=== PATIENT | female | born 1965 | race Caucasian/White ===

== ENCOUNTER 2023-06-09 13:02 | Outpatient (CLI) | payer OTHER, SELFPAY ==
--- NOTE | ~2023-06-09 | MMUS_ITS ---
EXAMINATION: MM diagnostic michele BI w dashawn, US breast RT limited HISTORY: Palpable right breast lump TECHNIQUE: Additional 3-D tomosynthesis images of the breasts were performed and synthetic 2-D images were generated. CAD analysis was submitted and interpreted. High resolution Limited right breast ult rasound was performed. COMPARISON: Comparison to multiple prior studies sequentially, with oldest reviewed study dated 11/04. BREAST PARENCHYMAL COMPOSITION: Not dense: There are scattered areas of fibroglandular density. FINDINGS: MAMMOGRAPHIC FINDINGS: Near the area of palpable concern in the upper outer quadrant of the right breast there is a cluster of calcifications with ill-defined associated density. No discrete mass. No architectural distortion. No evidence for malignancy in the left breast. ULTRASOUND: Limited right breast ultrasound: At 12:00, 11 cm from the nipple, there is a complex mixed echogenici ty mass measuring approximately 1.2 x 1 x 0.8 cm with areas of posterior shadowing, possibly due to c alcifications. IMPRESSION: 1. Complex right breast mass at 12:00, 11 cm from the nipple measuring 1.2 cm greatest dimension. 2. Ultrasound-guided right breast biopsy recommended. BI-RADS category 4, suspicious findings. Reviewed, dictated and finalized at location A. RT/EXPORT FREIGHT FORWARDER IMPRESSION: 1. Complex right breast mass at 12:00, 11 cm from the nipple measuring 1.2 cm g reatest dimension. 2. Ultrasound-guided right breast biopsy recommended. BI-RADS category 4, suspicious findings.
== END 2023-06-09 13:03 | disposition home or self-care (01) ==
PROVIDERS: PCP Family Medicine; Visit Provider Student in an Organized Health Care Education/Training Program
DX: R92.8 Other abnormal and inconclusive findings on diagnostic imaging of breast (principal); N60.01 Solitary cyst of right breast
CPT/HCPCS: 76642; 77062; 77066; G0279

== ENCOUNTER 2024-04-29 09:11 | Emergency (ER) | payer OTHER, SELFPAY ==
--- NOTE | ~2024-04-29 | XR_ITS ---
CHEST RADIOGRAPH, PA AND LATERAL CLINICAL HISTORY: cough, chest heaviness, bodyaches, fever . COMPARISON: None available TECHNIQUE: PA and lateral views of the chest. FINDINGS The cardiomediastinal silhouette is unremarkable. The lungs are clear. Plate and screw fixation within the right clavicle. IMPRESSION: No focal infiltrate or effusion. Reviewed, dictated and finalized at location A. PEN SET ASSEMBLER
--- NOTE | 2024-04-29 09:18 | ED.URI ---
HPI - URI/Sore Throat General Chief Complaint: Upper Respiratory Infection Stated Complaint: Weakness/Vomiting/Bodyaches Time Seen by Provider: 04/29/24 09:14 Source: patient Mode of arrival: ambulatory Limitations: no limitations History of Present Illness HPI Narrative: Jannet is a 58-year-old female patient presenting to the clinic today with complaints fevers, chills, body aches, nausea, vomiting, cough, sore throat, weakness, and general malaise/fatigue times 4 days. Highest fever was 102? F. her also has similar symptoms. Took at home COVID influenza test on and they were negative. MD elicited complaint: fever, cough, sore throat and nasal congestion Related Data Home Medications ?Medication ?Instructions ?Recorded ?Confirmed ?Last Taken ?Type semaglutide (weight loss) 0.25 0.25 mg subcut WEEKLY 05/25/23 02/27/24 Unknown History mg/0.5 mL subcutaneous pen injector Allergies Allergy/AdvReac Type Severity Reaction Status Date / Time cephalexin (From Keflex) Allergy Mild Hives Verified 04/29/24 09:25 codeine Allergy Unknown HIVES/RED Verified 04/29/24 09:25 FACE Review of Systems Review of Systems: Pertinent positives per HPI. Patient denies any rash, headache, visual changes, dizziness, chest pain, palpitations, nausea, vomiting, diarrhea, constipation, abdominal pain, or any urinary issues. [facility] Past Medical History Medical History Breast lump Presence of pessary Hypertension affecting Surgical History Surgical History History of hysteroscopy ablation Hx of appendectomy History of bilateral breast reduction surgery 1984 History of section 1997, 2002 Social History Social History Smoking status: Never smoker Alcohol intake: current Substance use: never Do You Feel Safe in your Home?: Yes Lack of Transportation: No Lack of Food: Never True Current Housing: I Have Housing Concerned About Future Housing: No Difficulty Paying Gas/Electric Bills: No Difficulty Paying for Meds: No Currently Unemployed: No Education: Master's Degree or Higher Difficulty w/ Childcare or Family Care: No Living arrangements: with family Occupation/Education: occupation Comments At the time of my signature, I reviewed and agree with the nursing past medical, surgical, social, and family history. There is no relevant family history pertinent to the patient complaint. Exam Narrative: General: Well-developed, well nourished, in no apparent distress Head: Normocephalic, atraumatic Eyes: Pupils equally round and reactive to light bilaterally, EOM intact, sclera and conjunctive clear, no discharge, lids normal Ears: TMs intact and congested, ear canals clear, no drainage, grossly hearing normal. Nose: Nares patent, clear nasal discharge, no inflammation, no sinus tenderness. Mouth: Oral pharynx without lesions or masses, good dentition, MMM. Neck: Supple, trachea midline, no enlargement of anterior or posterior cervical nodes, no thyroid masses or goiter palpable. Cardio: Regular rate and rhythm, s1 and s2 normal, no murmur appreciated. Resp: Clear to auscultation bilaterally, no rhonchi, rales, wheezing or rubs Course Course Emergency Course: Portions of this record may have been created with voice recognition software. Level of Care: Express Care Visit Vital Signs Vital signs: Vital Signs Temperature 36.8 C 04/29/24 09:28 Pulse Rate 85 04/29/24 09:28 Respiratory Rate 16 04/29/24 09:28 Blood Pressure 107/79 04/29/24 09:28 Pulse Oximetry 99 04/29/24 09:28 Oxygen Delivery Room Air 04/29/24 09:28 Temperature 36.8 C 04/29/24 09:28 Pulse Rate 85 04/29/24 09:28 Respiratory Rate 16 04/29/24 09:28 Blood Pressure 107/79 04/29/24 09:28 Pulse Oximetry 99 04/29/24 09:28 Oxygen Delivery Room Air 04/29/24 09:28 Vital signs reviewed MDM - URI/Sore Throat MDM Narrative Medical decision making narrative: At the time of visit patient is resting comfortably on the exam table. Patient appears to be nontoxic. Labs: Strep test was performed was negative in the clinic today. We will send strep for culture. Diagnostics: Chest x-ray is negative for any acute cardiopulmonary process. Plan: I suspect patient has URI with cough and congestion/viral syndrome. Supportive measures were discussed with the patient and they voiced understanding discharge instructions and agrees to treatment plan. Return precautions reviewed Differential Diagnosis Differential diagnosis: Likely upper respiratory infection, otitis media, sinusitis, viral infection, bronchitis, influenza, pharyngitis and other (COVID) Lab Data Labs: Lab Results 04/29/24 Range/Units 09:38 POC Grp A Strep Screen Negative (Negative) Discharge Plan Discharge Clinical Impression: Upper respiratory infection with cough and congestion, Acute viral syndrome Patient Disposition: Home, Self-Care Condition: Stable Instructions: Antibiotic Form, Upper Respiratory Infection (ED), Viral Syndrome (ED) Additional Instructions: Strep test is negative in the clinic today. We will send strep for culture. If this comes back positive we will contact him place you on antibiotics at that time. Chest x-rays negative for any acute cardiopulmonary process. Take prescription medications only as prescribed-albuterol inhaler and Zofran May take DayQuil/NyQuil for cold/flu symptoms Increase fluids and stay well hydrated Tylenol/motrin for pain/fever Flonase and OTC antihistamines as directed Vicks vapor rub to open sinuses Sinus rinses for congestion Cepacol spray, cough drops, throat lozenges, warm tea with honey/lemon, gargle salt water to soothe throat BRAT diet for diarrhea Clear liquids x 24 hours then advance as tolerated for nausea/vomiting Go to the ED if you develop a worsening in your condition- high fever not controlled by Tylenol or Motrin, dehydration, weakness, lethargy, shortness of breath, or chest pain. Follow up with your PCP in 3-5 days if symptoms persist. Patient Language: Haitian Prescriptions: New albuterol sulfate 90 mcg/actuation HFA aerosol inhaler 2 puff inhalation Q4-6H PRN (Reason: shortness of breath or wheezing) 30 Days Qty: 8.5 0RF ondansetron 4 mg tablet,disintegrating 4 mg PO Q6H PRN (Reason: nausea and vomiting) 3 Days Qty: 12 0RF No Action gabapentin 100 mg capsule 100 mg PO QHS Qty: 30 1RF lisinopril 10 mg tablet 10 mg PO DAILY Qty: 90 2RF semaglutide (weight loss) 0.25 mg/0.5 mL pen injector 0.25 mg subcut WEEKLY Rx Instructions: administer weeks 1 through 4 of therapy Follow-up/Referrals: Mehnaz Scherer MD [Primary Care Provider] - Time of Disposition: 09:51 Quality NIHSS Nursing Documentation ED NIHSS nursing documentation: reviewed/agree
[2024-04-29 09:28] VITALS: BP 107/79; PULSE 85; RESP 16; TEMP 36.8; O2SAT 99
[2024-04-29 09:40] LABS: EDSTREPNEGPOS1 Negative (Negative)
== END 2024-04-29 10:00 | disposition home or self-care (01) ==
PROVIDERS: Emergency Provider Nurse Practitioner Family; PCP Family Medicine
DX: J06.9 Acute upper respiratory infection, unspecified (principal); R05.9 Cough, unspecified; B34.9 Viral infection, unspecified
CPT/HCPCS: 71046; 87081; 87880; 99213; G0463

== ENCOUNTER 2024-08-16 08:52 | Outpatient (CLI) | payer OTHER, SELFPAY ==
--- NOTE | 2024-08-16 09:01 | ECG_ITS ---
Test Date: 2024-08-16 09:34:25 Measurements Intervals [place] Rate: 68 P: 66 OK: 154 QRS: 10 QRSD: 92 T: 37 QT: 371 QTc: 396 Interpretive Statements SINUS RHYTHM LOW QRS VOLTAGE IN PRECORDIAL LEADS [QRS DEFLECTION < 1.0 mV IN CHEST LEADS] INCOMPLETE RIGHT BUNDLE BRANCH BLOCK [90+ ms QRS DURATION, TERMINAL R IN V1/V2, 40+ ms S IN I/aVL/V4/V5/V6] No previous ECG available for comparison Electronically Signed On 08-16-2024 10:12:13 CDT by Jayy Elias M.D.
--- OUTSIDE RECORDS SUMMARY | 2024-08-16 09:06 | XMS_ITS | Clinical Summary ---
Author Organization [facility] Address [address] [place] [address] Care Team Providers Care Power Grader Operator Name Role Phone Austin Tello MD Primary Care Prov ider Austin Tello MD Unavailable + Allergies Active Allergy Reactions Criticality Noted Date Comments Cephalexin Rash Medium 07/15/2023 Codeine Itching Low 10/28/2016 Medications lisinopriL (PRINIVIL,ZESTRI L) 10 mg tablet 1 tablet (10 mg total) Active semaglutide (OZEMPIC) 0.25 mg or 0.5 mg(2 mg/1.5 mL) pen injector injection Inject under the skin every 7 days Active Active Problems No known active problems Surgical History Surgery Date Site/Laterality Comments COMBINED REDUCTION MAMMAPLAS TY W/ LIPOSUCTION 04/11/1983 - 04/10/1984 SECTION 04/11/2002 - 04/10/2003 ROTATOR CUFF REPAIR 04/11/2022 - 04/10/2023 CLAVICLE SURGERY 04/11/2016 - 04/10/2017 ENDOMETRIAL ABLATION 04/11/2007 - 04/10/2008 APPENDECTOMY 1987 CERVICAL CERCLAGE 1988 Medical History Medical History Date Comments Hypertension Overweight Family History Medical History Relation Name Comments Diabetes Father Family history of diabetes mellitus - (Added by TW Conv) Hypertension Father Family history of hypertension - (Added by TW Conv) Arthritis Mother Family history of arthritis - (Added by TW Conv) Breast cancer Mother Cancer Mother Family history of malignant neoplasm - (Added by TW Conv) Diabetes Mother Family history of diabetes mellitus - (Added by TW Conv) Relation Name Status Comments Father Mother Social History Tobacco Use Types Packs/Day Years Used Date Smoking Tobacco: Never Passive Smoke Exposure: Never Smokeless Tobacco: Never Tobacco Cessation:Counseling Given: Not Answered AUDIT-C Answer Date Recorded Q1: How often do you have a drink containing alc ohol? Monthly or less 07/15/2023 Q2: How many drinks containi ng alcohol do you have on a typical day when you are drinking? 1 or 2 07/15/2023 Q3: How often do you have si x or more drinks on one occasion? Less than monthly 07/15/2023 Personal Safety Answer Date Recorded Getting School Help Needed Not on file 06/12 Comments Unknown Sex and Gender Information Value Date Recorded Sex Assigned at Not on file Legal Sex Female 1:06 PM CDT Gender Identity Not on file Sexual Orientation Not on file Obstetrics History Last Filed Vital Signs Vital Sign Reading Time Taken Comments Blood Pressure - - Pulse - - Temperature - - Respiratory Rate - - Oxygen Saturation - - Inhaled Oxygen Concentration - - Weight 70.3 kg (155 lb) 07/15/2023 1:11 PM CDT Height 167.6 cm (5' 6 ) 07/15/2023 1:11 PM CDT Body Mass Index 25.02 07/15/2023 1:11 PM CDT Plan of Treatment Health Maintenance Due Date Last Done Comments Breast Cancer Screening-Mammogram 1967 Cervical Cancer Screening 1967 Colon Cancer Screening-Colonoscopy 1967 Depression Screening 1967 Hepatitis C Screening 1967 Hepatitis B Screening 09/06/1985 Regular Well Visit/Exam 18-64 09/06/1985 Zoster Vaccine (1 of 2) 09/06/2017 Covid-19 Vaccine (2023-2 5 season) 2023 03/18/2021, 05/30/2020, 05/01/2020 Influenza Vaccine (Season Ended) 2024 DTaP/Tdap/Td Vaccine (2 - Td or Tdap) 02/17/2032 02/16/2022 Pneumococcal vaccine <65 Aged Out No longer eligible based on patient's age to complete this topic Insurance [facility] [employer] Care Teams Power Grader Operator Relationship Specialty Start Date End Date Austin Tello MD [address] [place] [address] PCP - General 10/28/16 Austin Tello MD [address] [place] [address] 10/28/16
--- OUTSIDE RECORDS SUMMARY | 2024-08-16 09:06 | XMS_ITS | Encounter Summary ---
Author Organization [facility] Healthcare Address [address] [place] [address] Care Team Providers Care Carpenter Railcar Name Role Phone Unavailable Primary Care Provider Unavailabl e Reason for Visit * Diagnostic Imaging (Routine) - Closed Specialty Diagnoses / Procedures Referred By Michael t Referred To Contact Procedures Breast Imaging Diagnostic Outside Reference Tammi Mcneal NP [address] [facility] [id number] [place] [address] Phone: tel: fax: Referral ID Status Reason Start Date Expiration Date Visits Re quested Visits Authorized [id number] Closed 06/24/2023 07/23/2024 1 1 Encounter Details Date Type Department Care Team (Late st Contact Info) Description 11/04/2014 Hospital Encounter [facility] Rad[facility] [address] [place] [id number] Social History Tobacco Use Types Packs/Day Years Used Date Smoking Tobacco: Never Passive Smoke Exposure: Never Smokeless Tobacco: Never AUDIT-C Answer Date Recorded Q1: How often [...] on file Sexual Orientation Not on file documented as of this encounter Functional Status * Audit-C Score Answer Date of Assessment Author 2 07/15/2023 1:14 PM CDT Kia Buck CMA * Question Answer Date of Assessment Author Q1: How often do you have a drink containing alcohol? Monthly or less 07/15/2023 1:14 PM CDT Kia Buck CMA Q2: How many drinks containing alcohol do you have on a typical day when you are drinking? 1 or 2 07/15/2023 1:14 PM CDT Kia Buck CMA Q3: How often do you have six or more drinks on one occasion? Less than monthly 07/15/2023 1:14 PM CDT Kia Buck CMA documented as of this encounter Plan of Treatment Not on file documented as of this encounter Procedures Procedure Name Priority Date/Time Associated Diagnosis Comments BREAST IMAGING MG DIAGNOSTIC OUTSIDE REFERENCE Routine 11/04/2014 12:00 AM CDT documented in this encounter Results * Breast Imaging Diagnostic Outside Reference (11/04/2014 12:00 AM CDT) Impressions [facility] - 06/24/2023 3:35 PM CDT These images are for Reference purposes only and have not been reviewed by [facility] Radiology. There will be no report generated by a [facility] Radiologist. Narrative [facility] - 06/24/2023 3:35 PM CDT EXAMINATION: Images For Reference Purposes Only us Tammi Mcneal NP IMG MAMMO PROCEDURES Final Result [facility] documented in this encounter Visit Diagnoses Not on filedocumented in this encounter
--- OUTSIDE RECORDS SUMMARY | 2024-08-16 09:06 | XMS_ITS | Referral Summary ---
Author Organization [facility] Address [address] [place] [address] Care Team Providers Care Mission Support Specialist Name Role Phone Austin Tello MD Primary [...] Active Active Problems No known active problems Social History Tobacco Use Types Packs/Day Years [...] Getting School Help Needed Not on file 03/04 /2024 Comments Unknown Sex and Gender Information Value Date Recorded Sex Assigned at Not on file Legal Sex Female 1:06 PM CDT Gender Identity Not on file Sexual Orientation Not on file Last Filed Vital Signs Vital Sign Reading Time Taken Comments Blood Pressure - - Pulse - - Temperature - - Respiratory Rate - - Oxygen Saturation - - Inhaled Oxygen Concentration - - Weight 70.3 kg (155 lb) 07/15/2023 1:11 PM CDT Height 167.6 cm (5' 6 ) 07/15/2023 1:11 PM CDT Body Mass Index 25.02 07/15/2023 1:11 PM CDT Plan of Treatment Not on file Insurance CHOICE PLUS CHOICE PLUS Care Teams Mission Support Specialist Relationship Specialty Start Date End Date Austin Tello MD [address] [place] [address] PCP - General 10/28/16 Austin Tello MD [address] [place] [address] 10/28/16
--- OUTSIDE RECORDS SUMMARY | 2024-08-16 09:06 | XMS_ITS | Encounter Summary ---
Author Organization [facility] Healthcare Address [address] [place] [address] Care Team Providers Care Drywall Hanger Framer Name Role Phone Austin Tello MD Primary Care Prov ider Austin Tello MD Unavailable + Reason for Visit * Diagnostic Imaging (Routine) - Closed Specialty Diagnoses / Procedures Referred By Contac t Referred To Contact Diagnoses Mass of right breast, unspecified quadrant Procedures Breast Imaging Screening Outside Reference Tammi Mcneal NP [address] [facility] [id number] [place] [address] Phone: tel: fax: Referral ID Status Reason Start Date Expiration Date Visits Re quested Visits Authorized [id number] Closed 06/24/2023 07/23/2024 1 1 Encounter Details Date Type Department Care Team (Late st Contact Info) Description 08/11/2018 Hospital Encounter [facility] Radiology [facility] [address] [place] [id number] Social History Tobacco Use Types Packs/Day Years [...] Date/Time Associated Diagnosis Comments BREAST IMAGING MG SCREENING OUTSIDE REFERENCE Routine 08/11/2018 12:00 AM CDT Mass of right breast, unspecified quadrant documented in this encounter Results * Breast Imaging Screening Outside Reference (08/11/2018 12:00 AM CDT) Impressions [facility] - 06/24/2023 3:34 PM CDT These images are for Reference purposes only and have not been reviewed by [facility] Radiology. There will be no report generated by a [facility] Radiologist. Narrative [facility] - 06/24/2023 3:34 PM CDT EXAMINATION: Images For Reference Purposes Only us Tamim Mcneal NP IMG MAMMO PROCEDURES Final Result [facility] documented in this encounter Visit Diagnoses Not on filedocumented in this encounter Care Teams Drywall Hanger Framer Relationship Specialty Start Date End Date Austin Tello MD [address] [place] [address] PCP - General 10/28/16 Austin Tello MD [address] [place] [address] 10/28/16 documented as of this encounter
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
--- OUTSIDE RECORDS SUMMARY | 2024-08-16 09:06 | XMS_ITS | Clinical Summary ---
Author Organization [facility] Address [address] [place] [address] Care Team Providers Care Massage Therapist Name Role Phone Sofia Sharma MD Primary Care Provider [phone] Source Comments [facility],non-owned Affiliates and Associated Physician Practices is amultiple site organization consisting of ambulatory clinics and hospital sitesin [place], [place], [place] and [place]. This disclosure is being madepursuant to the Care Everywhere program and may not contain all information available regarding this patient. Last updated 17.[facility] Allergies Active Allergy Reactions Criticality Noted Date Comments Codeine Itching 10/10/2019 Medications * Be aware that medications may not be up to date on this document. Alwaysverify current medications with the patient. vitamin D, ergocalciferol, (DRISDOL) 1.25 MG (62203 UT) capsule Take 50,000 Units by mouth every 7 days 05/15/2020 Active lisinopril (PRINIVIL; ZESTRIL) 20 MG tablet Take 20 mg by mouth once daily 07/17/2020 Active Active Problems No known active problems Family History Medical History Relation Name Comments Diabetes - Type 2 Father Hyperlipidemia Father Hypertension Father Diabetes - Type 2 Maternal Grandfather Diabetes - Type 2 Maternal Grandmother CVA Mother Diabetes - Type 2 Mother Cancer - Colon Other Diabetes - Type 2 Paternal Grandfather Diabetes - Type 2 Paternal Grandmother Relation Name Status Comments Father Maternal Grandfather Maternal Grandmother Mother Other Paternal Grandfather Paternal Grandmother Social History Tobacco Use Types Packs/Day Years Used Date Smoking Tobacco: Never Smokeless Tobacco: Never Alcohol Use Standard Drinks/Week Comments Yes 0 (1 standard drink = 0.6 oz pur e alcohol) 5/week Comments No Sex and Gender Information Value Date Recorded Sex Assigned at Not on file 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 Gender Identity Not on file Sexual Orientation Not on file Last Filed Vital Signs Vital Sign Reading Time Taken Comments Blood Pressure 128/80 09/09/2020 2:10 PM CDT Pulse - - Temperature - - Respiratory Rate - - Oxygen Saturation - - Inhaled Oxygen Concentration - - Weight 65.8 kg (145 lb) 09/09/2020 2:10 PM CDT Height 165.1 cm (5' 5 ) 09/09/2020 2:10 PM CDT Body Mass Index 24.13 09/09/2020 2:10 PM CDT Plan of Treatment Health Maintenance Due Date Last Done Comments COLOGUARD (AGES 45-75) - COL ON CA SCREENING 1967 COLON MONITORING 1967 COLONOSCOPY - COLON CA SCREENING 1967 CT COLONOGRAPHY - COLON CA SCREENING 1967 Colorectal Cancer Screening 1967 FIT - COLON CA SCREENING 1967 FLEX SIG - COLON CA SCREENING 1967 LIPID TESTING 1967 MAMMOGRAM 1967 HIV SCREENING 09/06/1982 HEPATITIS C SCREENING 09/02/1985 DTAP/TDAP/TD VACCINES (1 - Tdap) 09/06/1986 HEPATITIS B VACCINE (1 of 3 - 19+ 3-dose series) 09/06/1986 PNEUMOCOCCAL VACCINE 50+ (1 of 1 - PCV) 09/06/2017 ZOSTER VACCINE (1 of 2) 09/06/2017 COVID-19 VACCINE (1 - 2023-2 5 season) 2023 DEPRESSION SCREENING 04/11/2024 INFLUENZA VACCINE (Season Ended) 2024 HIB VACCINE Aged Out No longer eligi ble based on patient's age to complete this topic HPV VACCINE Aged Out No longer eligi ble based on patient's age to complete this topic MENINGOCOCCAL (Group B) VACC INE SHARED DECISION-MAKING Aged Out No longer eligibl e based on patient's age to complete this topic MENINGOCOCCAL GROUPS A/C/Y/W VACCINE Aged Out No longer eligible b ased on patient's age to complete this topic [place] [address] [place] [address] Care Teams Massage Therapist Relationship Specialty Start Date End Date Sofia Sharma MD [address] [facility] [address] [place] [id number] PCP - General 09/19/19
== END 2024-08-16 08:53 | disposition home or self-care (01) ==
LOC: ANHCARD 08:56
PROVIDERS: PCP Family Medicine; Visit Provider Family Medicine
DX: I10 Essential (primary) hypertension (principal); Z01.818 Encounter for other preprocedural examination; I45.10 Unspecified right bundle-branch block
CPT/HCPCS: 93005